=== PATIENT | female | born 1975 | race Caucasian/White ===

== ENCOUNTER 2024-10-24 05:49 | Day surgery (SDC) | payer BC ==
[~2024-10-24] VITALS: Ht 152.4 cm; Wt 106.5 kg
[~2024-10-24 05:49] MED LIST: ABAC300; ASPIR 8181 M1 PO; B NATAL MM; HYDACE5 PO; MULVITA PO; NAPR220 PO; PROGEST; Protonix40 MG PO; TESTOSTERONE; TYLENOL PM
[2024-10-24] MEDS ORDERED: Lactated Ringer's 1,000 ML IV SCH (06:20)
[2024-10-24] MEDS ORDERED: ALBU90OI INH (06:28)
[2024-10-24] MEDS ORDERED: propofoL 40 ML IV ONE (06:34)
[2024-10-24] MEDS ORDERED: Lidocaine HCl 2% 20 ML MDV ONE (06:35)
[2024-10-24 06:40] VITALS: BP 135/70
--- NOTE | 2024-10-24 06:56 | NUR ---
History, Chart, Medications and Allergies reviewed before start of procedure. Patient States Post-Procedure ride home has been arranged. Patient confirms NPO status and agrees with scheduled surgery. Pre-Op teaching done. Pt verbalizes understanding. Ambulatory in Day Surgery.
--- NOTE | 2024-10-24 07:33 | NUR ---
10/24/24 0732 Ray Zarco MONITOR INTACT WITH CONTINUOUS PULSE OXIMETRY, CONTINUOUS END TITAL CO2, 3-LEAD EKG AND INTERMITTENT BLOOD PRESSURE. ANESTHESIA PER DR. SAVAGE
[2024-10-24 07:52] VITALS: BP 105/79
--- NOTE | 2024-10-24 10:25 | NUR ---
LATE ENTRY: Patient up to Ambulate independently. Gait steady. Discharge instructions reviewed with patient. Patient verbalizes understanding. Copy given to patient to take home. Discharged via wheelchair to private car for ride home.
== END 2024-10-24 08:10 | disposition home or self-care (01) ==
LOC: ORSCMMR 05:49 → ORD 07:30 → ORSCMMR 08:10
PROVIDERS: Surgery
PROC: 0DBN8ZX Excision of Sigmoid Colon, Via Natural or Artificial Opening Endoscopic, Diagnostic (ICD-10-PCS; principal; 2024-10-24 07:30)
DX: Z12.11 Encounter for screening for malignant neoplasm of colon (principal); K63.5 Polyp of colon; K57.30 Diverticulosis of large intestine without perforation or abscess without bleeding; K64.0 First degree hemorrhoids; K58.9 Irritable bowel syndrome, unspecified; R00.0 Tachycardia, unspecified; J45.909 Unspecified asthma, uncomplicated; E66.9 Obesity, unspecified; Z68.42 Body mass index [BMI] 45.0-49.9, adult
CPT/HCPCS: 88305; J2704; J7120